=== PATIENT | male | born 1955 | race Caucasian/White ===

== ENCOUNTER 2020-08-07 21:47 | Emergency (ER) | payer MEDICARE, MEDICAID, SELFPAY ==
[2020-08-07 21:48] VITALS: BP 151/72; PULSE 83; RESP 16; TEMP 36.4; O2SAT 99; BMI 19.6
--- NOTE | 2020-08-07 21:58 | CT_ITS ---
STUDY: CT BRAIN WITHOUT CONTRAST REASON FOR EXAM: Male, 65 years old. Change in mental status. Other, COMBATIVE,SUICIDAL IDEATION HX:CVA RADIATION DOSAGE (If Supplied By Facility): CTDIvol = ( 44.99 ) mGy, DLP = ( 846.73 ) mGycm TECHNIQUE: Transaxial CT imaging of the brain was performed without administration of intravenous contrast material. Individualized dose optimization techniques were used for this CT. COMPARISON: None. FINDINGS: Late subacute appearing lacunar infarct at the anterior junction of the internal capsule and right caudate nucleus. Normal soft tissue structures. Normal calvarium. There is mild cerebral atrophy with widening of the extra-axial spaces and ventricular dilatation. There are areas of decreased attenuation within the white matter tracts of the supratentorial brain, consistent with microvascular disease changes. Normal thalami. Normal brainstem. Normal cerebellum. There is no intracranial hemorrhage. There are no findings of an acute ischemic infarction. Normal visualized paranasal sinuses. CT/Brain/Head without Contrast IMPRESSION: 1. Late subacute appearing lacunar infarct at the anterior junction of the internal capsule and right caudate nucleus. 2. Chronic involutional changes of the brain. Electronically Signed: Jairo Davenport MD at 23:33 EDT , Service support ,
--- NOTE | 2020-08-07 21:58 | EKG12_ITS ---
Test Reason : [facility] Blood Pressure : / mmHG Vent. Rate : 063 BPM Atrial Rate : 063 BPM P-R Int : 156 ms QRS Dur : 100 ms QT Int : 382 ms P-R-T Axes : 051 026 053 degrees QTc Int : 390 ms Sinus rhythm with occasional Premature ventricular complexes Otherwise normal ECG Confirmed by ELAINE CHIU, OLIVER ([id number]), editor index MERLY FLANAGAN ([id number]) on 08/09/2020 9:04:08 AM Referred By: BRE Confirmed By:OLIVER HENRY MD
--- NOTE | 2020-08-07 21:59 | ED.DCSUM_ITS ---
History of Present Illness Chief Complaint: Suicidal Informant: Patient Limited by: Uncooperative Onset: Today Context: Gradual Onset Timing: Continuous Current Severity: Moderate Maximum Severity: Moderate Narrative: The patient is a 65-year-old male history of hypertension and prior stroke presents to the emergency department with abnormal behavior. Apparently, the patient was brought in by deputies. He was going into the neighborhood and trying to break into houses looking for his fianc?e. Apparently, police were able to find that he does not have a fianc?. He states that it communicates with her through an earpiece. When the police talked to him about this, he became very aggressive and agitated. He states that he just wants to . He states that he would kill himself if he could. The patient denies any history of underlying mental disease. He denies any drug or alcohol use. Prior similar symptoms: No Recent Illness/Hospitalization: No Past Medical History - Allergies and Home Meds Allergies/Adverse Reactions: Allergies No Known Allergies Allergy (Verified 08/07/20 21:52) Primary Care Physician: NOT,DEFINED [NON-STAFF] - Prior records reviewed: Yes Past Medical History: - - Hypertension, stroke Surgical History: noncontributory Smoking Status: Current every day smoker Review of Systems General: Denies: Chills, Fever, Sweats Eyes: Denies: Visual changes - bilaterally, Diplopia ENT: Denies: Rhinorrhea, Sore throat Cardiovascular: Denies: Chest pain, Palpitations Respiratory: Denies: Dyspnea, Cough, Dyspnea on exertion Gastrointestinal: Denies: Abdominal pain, Nausea, Vomiting, Diarrhea, Melena, Hematochezia Genitourinary: Denies: Dysuria, Hematuria, Frequency Musculoskeletal: Denies: Back pain, Extremity Pain Skin: Denies: Rash, Wounds Neurological: Denies: Headache, Weakness, Numbness Physical Exam Vital Signs/Narrative: Vital Signs Temp Pulse Resp BP Pulse Ox 08/07/20 21:48 97.6 F L 83 16 151/72 H 99 Inital Vital Signs reviewed: Yes General: Well nourished, Well developed, No Acute Distress Head: Normocephalic, Atraumatic Eyes: Perrl, EOMI ENT: Moist mucous membranes, No rhinorrhea Neck: Supple, Nontender Cardiovascular: Regular rate, Regular rhythm, No murmurs Respiratory: No distress, CTA bilaterally, Chest nontender Abdomen: Soft, Nontender, Nondistended, Normal bowel sounds Back: Nontender, Normal Inspection Extremities: Nontender, No edema Skin: Normal color, No rash Neurological: Alert, Oriented x3, Cranial nerves II-XII grossly intact, Normal Strength, Normal Sensation Psychological: Normal affect, Normal Mood Diagnostic/Tx/Re-eval Clinical Impression(s) from Imaging Studies Brain CT 08/07/20 21:58 IMPRESSION: 1. Late Clinical Impression(s) from Imaging Studies Brain CT 08/07/20 21:58 IMPRESSION: 1. Late appearing lacunar infarct at the anterior junction of the internal capsule and right caudate nucleus. 2. Chronic involutional changes of the brain. Electronically Signed: Jairo Davenport MD at 23:33 EDT , Service support , Abnormal Lab Results 08/07/20 08/07/20 08/07/20 22:05 22:05 22:05 WBC 4.9 RBC 4.79 Hgb 14.7 Hct 43.6 MCV 91.0 MCH 30.7 MCHC 33.7 RDW Std Deviation 43.8 RDW Coeff of Raji 13.2 Plt Count 145 L MPV 9.2 Immature Gran % (Auto) 0.200 Neut % (Auto) 46.3 L Lymph % (Auto) 38.7 Prentiss % (Auto) 8.4 Eos % (Auto) 5.6 H Baso % (Auto) 0.8 Absolute Neuts (auto) 2.3 Absolute Lymphs (auto) 1.88 Nucleated RBC % 0 Sodium 138 Potassium 3.5 Chloride 105 Carbon Dioxide 27.0 Anion Gap 6 BUN 15 Creatinine 0.82 Estim Creat Clear Calc 70.12 Est GFR (MDRD) Af Amer 120 Est GFR (MDRD) Non-Af 99 BUN/Creatinine Ratio 18.2 Glucose 127 H Calcium 8.9 Total Bilirubin 0.50 AST 13 L ALT 15 L Alkaline Phosphatase 93 Total Protein 7.3 Albumin 3.9 Globulin 3.4 Albumin/Globulin Ratio 1.1 Urine Color Urine Clarity Urine pH Ur Specific [place] Urine Protein Urine Glucose (UA) Urine Ketones Urine Occult Blood Urine Nitrite Urine Bilirubin Urine Urobilinogen Ur Leukocyte Esterase Urine RBC Urine WBC Ur Squamous Epith Cells Urine Bacteria Urine Mucus Urine Opiates Screen Urine Methadone Screen Ur Barbiturates Screen Ur Phencyclidine Scrn Ur Amphetamines Screen U Methamphetamin-MDMA U Benzodiazepines Scrn Urine Cocaine Screen U Cannabinoids Screen Ur Drug Screen Comment Ethyl Alcohol < 3.0 08/08/20 08/08/20 00:15 00:15 WBC RBC Hgb Hct MCV MCH MCHC RDW Std Deviation RDW Coeff of Raji Plt Count MPV Immature Gran % (Auto) Neut % (Auto) Lymph % (Auto) Prentiss % (Auto) Eos % (Auto) Baso % (Auto) Absolute Neuts (auto) Absolute Lymphs (auto) Nucleated RBC % Sodium Potassium Chloride Carbon Dioxide Anion Gap BUN Creatinine Estim Creat Clear Calc Est GFR (MDRD) Af Amer Est GFR (MDRD) Non-Af BUN/Creatinine Ratio Glucose Calcium Total Bilirubin AST ALT Alkaline Phosphatase Total Protein Albumin Globulin Albumin/Globulin Ratio Urine Color Yellow Urine Clarity Clear Urine pH 6.0 Ur Specific [place] 1.015 Urine Protein Negative Urine Glucose (UA) Normal Urine Ketones Negative Urine Occult Blood Negative Urine Nitrite Negative Urine Bilirubin Negative Urine Urobilinogen Normal Ur Leukocyte Esterase Negative Urine RBC 0 SEEN Urine WBC 0 SEEN Ur Squamous Epith Cells 0 SEEN Urine Bacteria 0 SEEN Urine Mucus 0 SEEN Urine Opiates Screen NEGATIVE Urine Methadone Screen NEGATIVE Ur Barbiturates Screen NEGATIVE Ur Phencyclidine Scrn NEGATIVE Ur Amphetamines Screen NEGATIVE U Methamphetamin-MDMA NEGATIVE U Benzodiazepines Scrn NEGATIVE Urine Cocaine Screen NEGATIVE U Cannabinoids Screen POSITIVE H Ur Drug Screen Comment Ethyl Alcohol - Rhythm Strip Rhythm Strip: Sinus Rhythm Rate: 80 Ectopy: None - EKG Initial EKG Interpretation: Sinus Rhythm, No Acute Injury Pattern Prior: Unchanged - Medical Decision Making The patient presents with very abnormal behavior, walking into other peoples houses, and thinking is communicating with a significant other from an earpiece. Patient denies any history of psychiatric disease, but does admit to depression. He apparently told the police that he no longer wanted to be alive. He told me that he has no thoughts of self-harm. He states he was just very scared when he was around the police and did not know what to say. Patient is awake and alert. Answers questions appropriately, but does seem to be internally stimulated. Broad metabolic work-up was pursued. EKG was sinus rhythm without acute ischemic change. Metabolic work-up was unremarkable. Noncontrast head CT shows evidence of old stroke, but no acute process. At this point, the patient is medically cleared. With his abnormal behavior, I did have crisis get involved. They spent a long time discussing this with the patient. He is mildly paranoid, but he is not actively suicidal. He has no thoughts of self-harm. They did feel that he would be safe for outpatient follow-up. The patient is agreeable with this. I do feel that he likely needs outpatient psychiatry, but do not feel that he needs pink slip at this time. Impression 1. Paranoia ED Disposition - Plan for ED Patient: Instructions: ED Confusion Referrals: Counseling,Center [GROUP OF PHYSICIANS] -
[2020-08-07 22:10] LABS: Absolute Lymphocyte Count 1.88 X10^3/uL (0.83-4.51); Absolute Neutrophil Count 2.3 X10^3/uL (2.0-7.7); Basophil# 0.04 X10^3/uL; Basophil% 0.8 % (0-1); Eosinophil# 0.27 X10^3/uL; Eosinophils% 5.6 % (0-5); Hematocrit 43.6 % (40-54); Hemoglobin 14.7 g/dL (13.0-16.5); Lymphocyte # 1.88 X10^3/ul (4.0); Lymphocyte % 38.7 % (19-41); Mean Corp Hgb Conc 33.7 g/dL (32-36); Mean Corpuscular Hgb 30.7 pg (27.0-32.0); Mean Platelet Vol. 9.2 fl (6.2-12.0); Monocyte# 0.41 X10^3/uL; Monocyte% 8.4 % (0-10); NRBC Flagged by Analyzer 0 % (0-5); Neutrophil # 2.25 X10^3/uL (2.7-7.7); Neutrophil % 46.3 % (47-70); Platelet Count 145 K/mm3 (150-450); RBC Distribution Width CV 13.2 % (11.6-14.6); RBC Distribution Width SD 43.8 fl (35.1-43.9); Red Blood Count 4.79 M/mm3 (4.6-6.2); White Blood Count 4.9 K/mm3 (4.4-11.0)
[2020-08-07 22:27] LABS: Alcohol, Blood (Medical)-Serum < 3.0 mg/dL
[2020-08-07 22:32] LABS: ALB/GLOB Ratio 1.1 RATIO (0.9-2.4); AST(SGOT) 13 U/L (15-37); Alanine Aminotransfer ALT/SGPT 15 U/L (16-61); Albumin, Serum 3.9 g/dL (3.2-5.0); Alkaline Phosphatase 93 U/L (45-117); Anion Gap 6 (5-15); BUN 15 mg/dL (7-18); BUN/Creat Ratio 18.2 RATIO (10-20); Calcium,Total 8.9 mg/dL (8.5-10.1); Chloride 105 mmol/L (98-107); Creatinine, Serum 0.82 mg/dL (0.70-1.30); EST Glomerular Filtration Rate 99 mL/min (>60); Est Glom Filt Rate - Afr Amer 120 mL/min (>60); Estimated Creatinine Clearance 70.12 ml/min; Globulin 3.4 g/dL (2.2-4.2); Glucose 127 mg/dL (74-106); Potassium 3.5 mmol/L (3.5-5.1); Protein, Total 7.3 g/dL (6.4-8.2); Sodium Level 138 mmol/L (136-145)
[2020-08-07 23:14] VITALS: RESP 16
[2020-08-08 00:17] LABS: Bacteria 0 SEEN /hpf (None Seen); Mucous, Urine 0 SEEN /hpf (<or=2+); Red Blood Cells-Urine 0 SEEN /hpf (0-5); Squamous Epithelial Cells - UA 0 SEEN /hpf (0-5); White Blood Cells 0 SEEN /hpf (0-5)
[2020-08-08 00:18] VITALS: RESP 16
[2020-08-08 00:19] LABS: Color, Urine Yellow (Yellow); Glucose, Dipstick Normal (Normal); Ketone-Dipstick Negative (Negative); Leukocyte Esterase-Dipstick Negative /ul (Negative); Nitrite-Dipstick Negative (Negative); Occult Blood-Urine Negative /ul (Negative); Protein-Dipstick Negative (Negative); Specific Gravity, Urine 1.015 (1.002-1.030); Urine Bilirubin Dipstick Negative (Negative); Urine Clarity Clear (Clear); Urine Urobilinogen Normal (Normal)
[2020-08-08 00:32] LABS: Amphetamine Urine VISTA NEGATIVE (<1000 ng/mL); Barbiturate Urine VISTA NEGATIVE (< 200 ng/mL); Benzodiazepine Urine VISTA NEGATIVE (< 200 ng/mL); Cocaine Urine VISTA NEGATIVE (< 300 ng/mL); Ecstacy Urine VISTA NEGATIVE (< 500 ng/mL); Methadone Urine VISTA NEGATIVE (< 300 ng/mL); PCP Urine VISTA NEGATIVE (< 25 ng/mL); THC Urine VISTA POSITIVE (< 50 ng/mL); Vista UDS pH Range 6
[2020-08-08 01:48] VITALS: BP 148/87; PULSE 76; RESP 18; O2SAT 99
== END 2020-08-08 01:51 | disposition home or self-care (01) ==
LOC: ED 22:58
PROVIDERS: Emergency Provider Emergency Medicine
DX: F22 Delusional disorders (principal); F17.200 Nicotine dependence, unspecified, uncomplicated; Z86.73 Personal history of transient ischemic attack (TIA), and cerebral infarction without residual deficits
CPT/HCPCS: 70450; 80053; 80307; 81001; 82077; 85025; 87426; 93005; 99285

== ENCOUNTER 2023-06-29 18:21 | Emergency (ER) | payer MEDICARE, MEDICAID, SELFPAY ==
[2023-06-29 18:22] VITALS: BP 164/104; PULSE 93; RESP 14; TEMP 36.2; O2SAT 97; BMI 20.9
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
--- NOTE | 2023-06-29 19:53 | ED.RN ---
[facility] CALLED, ETA [id number].
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
--- NOTE | 2023-06-29 20:15 | ED.RN ---
YOGESH, NURSE AT [facility] UPDATED PATIENT WILL BE RETURNING TO THEIR FACILITY. NO FURTHER QUESTIONS
[2023-06-29 21:06] VITALS: BP 154/81; PULSE 78; RESP 16; O2SAT 98
== END 2023-06-29 21:08 | disposition home or self-care (01) ==
PROVIDERS: Emergency Provider Student in an Organized Health Care Education/Training Program; PCP Family Medicine; Visit Provider Student in an Organized Health Care Education/Training Program
DX: R45.1 Restlessness and agitation (principal); F20.9 Schizophrenia, unspecified; F17.210 Nicotine dependence, cigarettes, uncomplicated
CPT/HCPCS: 99282